=== PATIENT | male | born 1970 | race Caucasian/White ===

== ENCOUNTER → 2017-05-02 | Outpatient (CLI) | payer OTHER ==
[2017-05-02 10:31] LABS: HEMOGLOBIN 14.2 g/dL (14.1-18.0); LYMPH # 1.5 K/mm3 (0.7-4.5); LYMPH % 23.6 % (10-50)
--- NOTE | 2017-05-02 10:49 | CARDIOVASCULAR REPORT ---
"Cerebrovascular Exam Indications: 785.9 Bruit. IMPRESSIONS 1. The bilateral internal carotid arteries reveal no evidence of plaque or stenosis. 2. The bilateral common and external carotid arteries reveal no significant stenosis. History: Risk factors: Hypertension. Hyperlipidemia. Carotid duplex study. Complete study and Doppler flow study including spectral analysis, color and wilkerson scale imaging. Height: Height: 185.4cm. Height: 73in. Weight: Weight: 99.8kg. Weight: 219.5lb. Body mass index: BMI: 29kg/m^2. Body surface area: BSA: 2.29m^2. Location: Vascular laboratory. Patient status: Outpatient. Tables: Arterial flow: + +--------+--------+ |Location |V sys |V ed | + +--------+--------+ |Right CCA - proximal|70.7cm/s|22cm/s | + +--------+--------+ |Right CCA - distal |72.3cm/s|25.1cm/s| + +--------+--------+ |Right ECA |84.1cm/s|--------| + +--------+--------+ |Right ICA - proximal|96.6cm/s|36.9cm/s| + +--------+--------+ |Right ICA - mid |102cm/s |33.8cm/s| + +--------+--------+ |Right ICA - distal |71.5cm/s|36.1cm/s| + +--------+--------+ |Right vertebral |43.2cm/s|--------| + +--------+--------+ |Left CCA - proximal |83.3cm/s|25.9cm/s| + +--------+--------+ |Left CCA - distal |78.6cm/s|30.6cm/s| + +--------+--------+ |Left ECA |79.4cm/s|--------| + +--------+--------+ |Left ICA - proximal |69.9cm/s|25.9cm/s| + +--------+--------+ |Left ICA - mid |65.2cm/s|28.3cm/s| + +--------+--------+ |Left ICA - distal |78.6cm/s|39.3cm/s| + +--------+--------+ |Left vertebral |44cm/s |--------| + +--------+--------+ Velocity ratios: + + + + + + | |Right, V sys|Right, V ed|Left, V sys|Left, V ed| + + + + + + |Max ICA/dist CCA|1.41 |1.47 |1 |1.28 | + + + + + + (Report amended ) Electronically signed by: Wilfred Wall [id number]"
--- NOTE | 2017-05-02 13:47 | RADIOLOGY REPORT PS360 ---
History and Indications: Chest pain, palpitation, tobacco use and family history. Procedure: Patient exercised on Marito protocol 10 minutes, resting heart rate was 69 bpm, resting blood pressure 136/79, with exercise maximum heart rate achieved was 1 62 bpm which is greater than 85% of the maximum predicted heart rate and a blood pressure was 170/86. Test was stopped due to shortness of breath. Patient has good exercise capacity achieved 12.8mets of workload on treadmill, the blood pressure response to exercise was adequate. Electrocardiogram: Resting electrocardiogram showed sinus rhythm, with exercise less than 1.[address] segment depression from the baseline EKG. The EKG portion of the exercise Myoview is negative for ischemia. Cardiac stress and resting SPECT images: Cardiac stress and rest SPECT images were obtained using technetium 99 Myoview 10.4 mCi at rest and 31.7 mCi at stress gated SPECT further analysis of segmental wall motion and calculation of the ejection fraction also done. Cardiac stress and resting SPECT images show mild fixed defect in the inferior wall with normal contractility in the gated SPECT is soft tissue attenuation, no reversible ischemia seen, computer derived ejection fraction is 59% with no obvious regional wall motion abnormality, right ventricle is normal size and contractility. Conclusion: 1. The EKG portion of the exercise Myoview is negative for ischemia, patient has good exercise capacity achieved 12.8 metastases of workload on treadmill, the blood pressure response to exercise was adequate, there was no exercise-induced chest discomfort. 2. No obvious scintigraphic evidence of reversible ischemia seen, computer derived ejection fraction is 59% no wall motion abnormality, right ventricle is normal size and contractility
--- NOTE | 2017-05-02 16:19 | RADIOLOGY REPORT PS360 ---
PROCEDURE: 2-D M-mode and color Doppler study INDICATIONS FOR THE TEST: Chest pain COPD Heart Murmur Tobacco Smoking Palpitations Fatigue Syncope Edema Hypertension Diabetes Mellitus Rheumatic Fever SOBX MOSS Obesity Hyperlipidemia Family History HD Additional History ANGINA Bicuspid Aortic Valve PATIENT INFORMATION HEIGHT: 71'' WEIGHT:220 GENDER: Male B/P: 130/84 2-D/M-MODE INTERPRETATION: 2-D MEASUREMENTS OBSERVED VALUES IN CMS Right Ventricular Dimension (RVDd) 2.7 Interventricular Septum (Thickness)(IVsd) 1.0 Left Ventricular Internal Dimensions(LVIDd) 4.9 Left Ventricular Posterior Wall (Thickness)(LVPWd) 1.3 Aortic Root 3.1 Aortic Cusp Separation 2.6 Left Atrial Dimensions (LAD) 3.0 2D 1. Left atrium is normal size, left ventricle is normal size, there is no concentric left ventricular hypertrophy, visually estimated ejection fraction 55% with no obvious regional wall motion abnormality. 2.The right atrium and right ventricle are normal size and contractility. 3. The aortic valve is bicuspid, the aortic root is normal size. 4. The mitral and tricuspid valve are structurally normal 5. The pulmonic valve is poorly visualized 6. No significant pericardial effusion noted. DOPPLER INTERROGATION: Doppler interrogation of the aortic, mitral and tricuspid valvular presence of mild mitral and tricuspid regurgitation, tricuspid and enteric velocity insufficient for calculation of the right ventricular systolic pressure. CONCLUSION: 1. Normal left ventricular size, preserved left ventricular systolic function, visually estimated ejection fraction 55% with no obvious regional wall motion abnormality. Grade 1 diastolic dysfunction seen without tissue Doppler evidence of raised left atrial pressure. 2. Bicuspid aortic valve without aortic stenosis aortic insufficiency, aortic root is normal size. 3. Mild mitral and tricuspid regurgitation. 4. No significant pericardial effusion noted.
== END ==
LOC: RAD 06:20 → LAB 06:20 → RAD 07:00
PROVIDERS: Internal Medicine
DX: I20.9 Angina pectoris, unspecified (principal); R06.00 Dyspnea, unspecified; R01.1 Cardiac murmur, unspecified; E78.5 Hyperlipidemia, unspecified; Q23.1 Congenital insufficiency of aortic valve; Z82.49 Family history of ischemic heart disease and other diseases of the circulatory system; R09.89 Other specified symptoms and signs involving the circulatory and respiratory systems
CPT/HCPCS: A9502